=== PATIENT | male | born 1950 ===

== ENCOUNTER → 2018-06-02 07:27 | Outpatient (CLI) | payer OTHER | END | disposition home or self-care (01) | LOC: LAB 07:27 | DX: I10 Essential (primary) hypertension (principal); B34.8 Other viral infections of unspecified site; R30.0 Dysuria; E10.69 Type 1 diabetes mellitus with other specified complication; C61 Malignant neoplasm of prostate; C62.10 Malignant neoplasm of unspecified descended testis ==

== ENCOUNTER 2019-08-24 07:21 | Outpatient (CLI) | payer OTHER | END 2019-08-24 07:28 | disposition home or self-care (01) | LOC: LAB 07:21 | PROVIDERS: ATTEND Urology | DX: C62.10 Malignant neoplasm of unspecified descended testis (principal); C61 Malignant neoplasm of prostate ==

== ENCOUNTER 2020-05-15 07:46 | Outpatient (CLI) | payer OTHER | END 2020-05-15 07:51 | disposition home or self-care (01) | LOC: LAB 07:46 | PROVIDERS: ATTEND Urology | DX: C61 Malignant neoplasm of prostate (principal); C62.10 Malignant neoplasm of unspecified descended testis ==

== ENCOUNTER 2021-06-03 07:15 | Outpatient (CLI) | payer OTHER | END 2021-06-03 07:33 | disposition home or self-care (01) | LOC: LAB 07:15 | PROVIDERS: ATTEND Urology | DX: C61 Malignant neoplasm of prostate (principal); C62.10 Malignant neoplasm of unspecified descended testis ==

== ENCOUNTER 2022-05-29 07:36 | Outpatient (CLI) | payer OTHER | END 2022-05-29 07:41 | disposition home or self-care (01) | LOC: LAB 07:36 | PROVIDERS: ATTEND Urology | DX: C61 Malignant neoplasm of prostate (principal); C62.10 Malignant neoplasm of unspecified descended testis ==

== ENCOUNTER 2023-06-15 09:14 | Outpatient (CLI) | payer OTHER ==
[2023-06-15 09:51] LABS: URINE APPEARANCE Clear; URINE BILIRRUBIN Negative (NEGATIVE); URINE BLOOD Negative; URINE COLOR Yellow; URINE GLUCOSE Negative (NEGATIVE); URINE LEUKOCYTE Negative; URINE NITRATE Negative; URINE PROTEIN Negative (NEGATIVE); URINE UROBILINOGEN 0.2 E.U./dl
[2023-06-15 09:56] LABS: URINE BACTERIA 6.2 uL (0.0-1933)
[2023-06-15 10:07] LABS: URINE EPITHELIAL CELLS 1.3 uL (0.0-38.8); URINE WBC 0.6 uL (0.0-23.2)
[2023-06-15 10:15] LABS: LDH 121 U/L (87-241)
[2023-06-15 10:34] LABS: HCG QUANTITATIVE < 1 mUI/mL (0-2); PROSTATIC SPECIFIC ANTIGEN < 0.010 NG/ML (0.010-4.00)
== END 2023-06-15 09:15 | disposition home or self-care (01) ==
LOC: RAD 09:14
PROVIDERS: ATTEND Urology
DX: C62.10 Malignant neoplasm of unspecified descended testis (principal); C61 Malignant neoplasm of prostate

== ENCOUNTER → 2024-05-30 06:33 | Outpatient (CLI) | payer OTHER ==
[2024-05-30 07:50] LABS: HEMATOCRIT 44.1 % (39.0-48.0); MEAN CELL VOLUME 94.6 fL (80.0-100.00); MEAN CORPUSCULAR HEMOGLOBIN 32.2 pg (27.00-32.0); PLATELET COUNT 281 K/uL (150-450); RED BLOOD COUNT 4.66 M/uL (4.00-6.00); RED CELL DISTRIBUTION WIDTH 12.6 % (11.5-14.5)
[2024-05-30 08:02] LABS: PH,URINE 5.5 (5.0-8.0); URINE APPEARANCE Clear; URINE BILIRRUBIN Negative (NEGATIVE); URINE BLOOD Negative; URINE COLOR Yellow; URINE GLUCOSE Negative (NEGATIVE); URINE KETONE Negative (NEGATIVE); URINE LEUKOCYTE Negative; URINE NITRATE Negative; URINE PROTEIN Negative (NEGATIVE); URINE UROBILINOGEN 0.2 E.U./dl
[2024-05-30 08:03] LABS: URINE BACTERIA 4.8 uL (0.0-1933); URINE RBC 5.7 uL (0.0-20.8); URINE WBC 2.2 uL (0.0-23.2)
[2024-05-30 08:09] LABS: URINE CAST 0.29 uL (0.0-1.40); URINE EPITHELIAL CELLS 1.2 uL (0.0-38.8)
[2024-05-30 08:49] LABS: ALBUMIN 3.8 gm/dL (3.4-5.0); ALKALINE PHOSPHATASE 79 U/L (50-136); ALT/SGPT 42 U/L (12-78); ANION GAP 5 (10.0-20.0); AST/SGOT 21 U/L (15-37); BILIRUBIN TOTAL 0.79 mg/dL (0.3-1.2); BLOOD UREA NITROGEN 17 mg/dL (7-18); BUN CREA RATIO 15 (7.0-25.0); CARBON DIOXIDE 31 mEq/L (21-32); CHLORIDE 109 mmol/L (98-107); CREATININE SERUM 1.16 mg/dL (0.70-1.30); GFR 61.89; GLOBULINA 3.7 G/DL (2.4-3.5); GLUCOSE FASTING 100 mg/dL (65-100); LDH 124 U/L (87-241); OSMOLALITY SERUM 283 MOSM/KG (275-295); POTASSIUM 4.21 mEq/L (3.5-5.1); SODIUM 141 mmol/L (136-145); TOTAL PROTEIN 7.5 gm/dL (6.4-8.2)
[2024-05-30 08:50] LABS: HCG QUANTITATIVE < 1 mUI/mL (0-2); PROSTATIC SPECIFIC ANTIGEN < 0.010 NG/ML (0.010-4.00)
== END | disposition home or self-care (01) ==
LOC: LAB 06:33
PROVIDERS: ATTEND Urology
DX: C62.12 Malignant neoplasm of descended left testis (principal); C61 Malignant neoplasm of prostate